=== PATIENT | male | born 1990 | race Two or more races ===

== ENCOUNTER 2023-06-08 11:24 | Emergency (ER) | payer MEDICAID ==
[~2023-06-08] VITALS: Ht 180.3 cm; Wt 75.0 kg
[2023-06-08 11:26] VITALS: TEMP 98.2
[2023-06-08 12:30] VITALS: BP 115/72; PULSE 80; RESP 14
[2023-06-08] MEDS ORDERED: CLIN-142 PO (12:42)
== END 2023-06-08 12:51 | disposition home or self-care (01) ==
LOC: EMS 11:28
DX: L02.31 Cutaneous abscess of buttock (principal)
CPT/HCPCS: 99283; Z7502

== ENCOUNTER 2023-08-14 09:51 | Emergency (ER) | payer MEDICAID ==
[~2023-08-14] VITALS: Ht 180.3 cm; Wt 95.0 kg
[~2023-08-14 09:51] MED LIST: CLIN-142 PO
[2023-08-14 10:01] VITALS: TEMP 98.2
[2023-08-14 10:18] LABS: COVID AG,FIA SOURCE NASAL SWAB
[2023-08-14 10:54] LABS: SARS-COV2 (COVID) ANTIGEN,FIA Negative (Negative)
[2023-08-14 11:00] LABS: INFLUENZA TYPE A NEGATIVE FOR TYPE A (NEGATIVE); INFLUENZA TYPE B NEGATIVE FOR TYPE B (NEGATIVE)
[2023-08-14 12:06] LABS: BASOPHILS % (AUTO) 0.6 % (0.0-2.0); EOSINOPHILS % (AUTO) 10.6 % (1.0-6.0); HEMATOCRIT 48.3 % (41-53); HEMOGLOBIN 15.8 g/dL (13.5-17.5); LYMPHOCYTES # (AUTO) 1.6 K/uL (1.0-4.8); LYMPHOCYTES % (AUTO) 18.3 % (22.0-44.0); MEAN CORPUSCULAR HEMOGLOBIN 28.2 pg (26.0-34.0); MEAN CORPUSCULAR HGB CONC 32.8 G/dL (31.0-37.0); MEAN CORPUSCULAR VOLUME 86 fL (80-100); MONOCYTES # (AUTO) 1.1 K/uL (0.1-1.0); MONOCYTES % (AUTO) 12.1 % (2.0-9.0); NEUTROPHILS # (AUTO) 5.1 K/uL (1.8-7.7); NEUTROPHILS % (AUTO) 58.4 % (40.0-70.0); PLATELET COUNT (AUTO) 206 K/uL (150-450); RED BLOOD CELL COUNT(AUTO) 5.61 MIL/uL (4.50-5.90); RED CELL DISTRIBUTION WIDTH 12.8 % (11.5-14.5); WHITE BLOOD COUNT (AUTO) 8.7 K/uL (4.5-11.0)
[2023-08-14] MEDS: SODIUM CHLORIDE 0.9% 1,000 ML IV ONE (12:09)
[2023-08-14 12:21] LABS: ANION GAP 4 mmol/L (8-16); CALCIUM, TOTAL 8.6 mg/dL (8.8-10.5); CARBON DIOXIDE 31 mmol/L (22-29); CHLORIDE 101 mmol/L (98-107); CREATININE 1.14 mg/dL (0.60-1.30); GLOMERULAR FILTR. RATE CALC > 60 mL/min (>60); GLUCOSE,RANDOM 88 mg/dL (70-110); POTASSIUM 4.3 mmol/L (3.5-5.1); SODIUM SERUM 136 mmol/L (136-145); UREA NITROGEN, BLOOD 9 mg/dL (7-18)
[2023-08-14 12:27] LABS: ALANINE AMINOTRANSFERASE 34 U/L (12-78); ALBUMIN 3.3 g/dL (3.4-5.0); ALKALINE PHOSPHATASE 145 U/L (46-116); ASPARTATE AMINOTRANSFERASE 28 U/L (15-37); BILIRUBIN,TOTAL 0.7 mg/dL (0.1-1.0); LIPASE 16 U/L (16-77)
[2023-08-14] MEDS: PB/HYOSCY/ATR/SCOP/LIDO/MAALOX 55 ML BOTTLE PO ONE (13:53)
[2023-08-14] MEDS: FAMOTIDINE 20 MG/2 ML VIAL IVP ONE (13:53)
[2023-08-14 14:19] VITALS: BP 118/70; PULSE 84; RESP 16
[2023-08-14] MEDS ORDERED: ONDA-104 PO (15:09)
== END 2023-08-14 15:21 | disposition home or self-care (01) ==
LOC: EMS 09:51
DX: K29.70 Gastritis, unspecified, without bleeding (principal); B96.89 Other specified bacterial agents as the cause of diseases classified elsewhere; Z20.822 Contact with and (suspected) exposure to COVID-19
CPT/HCPCS: 99285; 96374; 76705; 96361; 87426; 80053; 83690; 85025; 87804; 74022; 93005; J3490; J7030; 36415-L1; 36415-TC

== ENCOUNTER 2023-10-02 16:31 | Emergency (ER) | payer MEDICAID ==
[~2023-10-02] VITALS: Ht 180.3 cm; Wt 77.3 kg
[~2023-10-02 16:31] MED LIST changes: +ONDA-104 PO
[2023-10-02 16:38] VITALS: BP 115/74; PULSE 62; RESP 16; TEMP 98.2
== END 2023-10-02 18:59 | disposition left against medical advice (07) ==
LOC: EMS 16:53
DX: R10.2 Pelvic and perineal pain (principal); Z53.21 Procedure and treatment not carried out due to patient leaving prior to being seen by health care provider